=== PATIENT | male | born 1980 | race Caucasian/White ===

== ENCOUNTER 2025-07-22 08:07 | Outpatient (AMB) | payer OTHER, SELFPAY ==
--- NOTE | 2025-07-22 08:06 | A.OFFVIS_ITS ---
Vital Signs 07/22/25 08:18 Height 5 ft 11 in Weight 220 lb BMI 30.7 BP 180/140 H Blood Pressure Location Lt brachial Position Sitting Respiration 16 Pulse 110 H Pulse Source Pulse Oximeter Pulse Oximetry (%) 98 Oxygen Delivery Method Room Air Comment Provider is aware of elevated B/P and HR Intake Visit Reasons: alcohol related sz Allergies No Known Allergies Allergy (Verified 07/22/25 08:19) Medication List - Last Reconciled 07/22/25 by Xin Paulson CNP folic acid 1 mg PO DAILY lisinopril 5 mg PO DAILY multivitamin with folic acid 400 mcg (Daily-Nikky (with folic acid)) 1 tab PO DAILY ondansetron 4 mg PO Q8H PRN pantoprazole 40 mg PO QAM tadalafil 20 mg PO DAILY PRN topiramate 25 mg PO Q12H HPI Comments Details: Jeromy is a 45-year-old male patient with a past medical history of hypertension, anxiety, and alcohol use disorder (and alcohol-related seizures) presenting for an evaluation for his seizures. He was seen in the emergency room on 07/10/2025. According to EMS, he was found on his front lawn. Neighbors has been concern for seizure activity. The patient has been fired from his job that morning. The family also had some concerns for medication overdose. Workup in the emergency room included an EKG and a CT of the head/brain and cervical spine without contrast. The CTs showed no acute abnormalities of the head or cervical spine. And on tells me today that he had his 1st drink at age 11. He started drinking regularly at age 13 with his father. He has a long history of drinking heavily for many years though approximately 3-4 years ago when he developed ascites, he stopped drinking for approximately 2 years. He believes that he stopped drinking cold turkey however he was admitted to the hospital for his ascites and can not recall if he was given anything to prevent withdrawal symptoms. Up until recently, he had not experienced any withdrawal seizures in the past throughout his life that he can recall. He has been sober for approximately 2 years but approximately 1 year ago he began drinking slowly again. More recently, he is back to drinking heavily as he has been before. Over the course of last few months, he has had approximately 5 seizure episodes. He notes that 2 of the seizure episodes occurred at work and the remainder of the seizure episodes occurred in a home setting. He can recall specifically the 1st seizure occurring after abstaining from alcohol for 3 days because he was having some relationship difficulties with his significant other. Subsequent seizures that have occurred at work have also been in the setting of sobriety however he can not recall specifically how long he has been without alcohol before those seizures. He also notes that this past Sunday he had his most recent seizure event but this was in the setting of being intoxicated. He does not have any prior seizure history or any known family of seizure history that he is aware of. He denies any significant head traumas, history of brain infection, or history of premature /traumatic . He does mentioned that his sleep has been extremely poor though drinking alcohol does help him to sleep. He was recently admitted to the hospital for pancreatitis but is not currently experiencing any symptoms related to the pancreatitis. He does admit to some added stress at home especially with just recently losing his job. He has been on naltrexone for some time though he is no longer taking naltrexone. He does speak with a therapist. He is currently living at home with his significant other though notes that their relationship is currently very ?miriam?. He does not believe that he has had any MRI of the brain or EEGs in the past. [facility] Medical History Depression Transaminitis Palpitations Obesity Hypertension HLD (hyperlipidemia) Fatty liver Alcohol abuse Review of Systems Const All systems reviewed & are unremarkable except as noted in HPI and below Physical Exam Vital Signs: Last Vital Signs Pulse 110 H 07/22/25 08:18 Resp 16 07/22/25 08:18 BP 180/140 H 07/22/25 08:18 Pulse Ox 98 07/22/25 08:18 Oxygen Delivery Method Room Air 07/22/25 08:18 BMI result Body Mass Index 30.7 Const General: cooperative and no acute distress Orientation/consciousness: patient oriented x3 Neuro General: patient oriented x3, gait normal, moves all extremities and CN's II-XI intact bilaterally Psych Appearance: grossly normal Mental Status: mental status grossly normal Speech and movement: Other speech and movement exam findings present (Psych) (Slow, quiet voice ) Affect: Sad affect present and Anxious affect present Attitude: cooperative Thought process: Normal thought process present Thought content: Normal thought content present Insight: Good insight present (Psych) Judgement: Good judgement present (Psych) Assessment & Plan Assessment & Plan (1) Seizure disorder: Code(s): G40.909 - Epilepsy, unspecified, not intractable, without status epilepticus Category: Medical Plan Jeromy is a 45-year-old male patient with a past medical history of hypertension, anxiety, and alcohol use disorder (and alcohol-related seizures) presenting for an evaluation for his seizures. Jeromy has had seizures both in the setting of alcohol abstinence as well as intoxication. While his seizures may be directly related to his alcohol use, I can not at this point rule out any other cause for seizure until we have MRI imaging and an EEG. Because his seizures have been in the setting of both withdrawal and intoxication, and Jeromy is currently still drinking regularly, I think it would be reasonable to start him on an antiepileptic for protection in the meantime. We did discuss that if his imaging and EEG are normal, if he is able to abstain from alcohol and remain sober, it is likely that we could trial him off of the antiepileptic. Because of his alcohol related liver disease. I did recommend a trial of gabapentin however he tells me that he has tried this in the past however could not tolerate the side effects/mood changes. I will recommend Keppra extended release 500 mg at bedtime. Primary care can monitor his liver function and I will monitor his levetiracetam levels. Of note, his blood pressure was elevated today however he did not take his morning dose of lisinopril. He denied any chest pain, dizziness, or blurry vision associated with a blood pressure increase. -Start Keppra extended release 500 mg at bedtime -MRI brain with and without contrast -EEG awake and asleep Orders: Orders EEG awake and asleep Today G40.909 - Epilepsy, unspecified, not intractable, without status epilepticus MR head/brain wo/w con Today G40.909 - Epilepsy, unspecified, not intractable, without status epilepticus Medications: New levetiracetam ER 500 mg PO BEDTIME 30 tabs 5RF 30 days Coding Level of Care Code New Pt Level 4 (14755) Diagnoses Seizure disorder G40.909
[2025-07-22 08:18] VITALS: BP 180/140; PULSE 110; RESP 16; O2SAT 98; BMI 30.7
== END 2025-07-22 08:52 | disposition home or self-care (01) ==
LOC: HO.HSM 08:07
PROVIDERS: Visit Provider Nurse Practitioner
DX: G40.909 Epilepsy, unspecified, not intractable, without status epilepticus (principal)
CPT/HCPCS: 99204

== ENCOUNTER → 2025-07-22 08:07 | Outpatient (BNVA) | payer OTHER, SELFPAY | PROVIDERS: Visit Provider Nurse Practitioner | DX: G40.909 Epilepsy, unspecified, not intractable, without status epilepticus (principal) | CPT/HCPCS: 99202 ==

== ENCOUNTER 2025-08-20 08:19 | Outpatient (REF) | payer OTHER, SELFPAY ==
--- NOTE | 2025-08-20 08:33 | EEG_ITS ---
Reason for Exam: G40.909 Epilepsy Roomed Performed:?402 History: Depression, transaminitis, palpitations, obesity, hypertension, HLD, alcohol abuse Medication: Keppra, folic acid, lisinopril, multivitamin with folic acid, ondansetron, pantoprazole, tadalafil, topiramate Technical description:? Photic stimulation: Yes Hyperventilation:?Yes Behavioral state: Cooperative State of Consciousness: Awake Skull defect: None Sedation: None Handedness: Left Duration of study:? 30min ? ? 20sec Description: This is a 16 channel EEG with an EKG lead. Patient is reported awake during the tracing. Background EEG rhythm is mixed theta beta with frequent muscle and lead artifacts limiting interpretation of this EEG. Photic stimulation produced good amount of driving. Hyperventilation was unremarkable. No definite asymmetry, paroxysmal tendency, sharp waves or spikes were noted. Cardiac lead did not reveal any significant abnormality. Impression: Somewhat limited EEG because of frequent artifacts. No obvious epileptic tendency noted. MTDD
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
--- OUTSIDE RECORDS SUMMARY | 2025-08-20 08:41 | XMS_ITS | Clinical Summary ---
Author Organization [facility] Address [address] [place] [address] Phone Care Team Providers Care Supervising Deputy Name Role Phone Alba Marie MD Primary Care Provider [phone] Allergies No known active allergies Medications No known medications Resolved Problems Problem Noted Date Diagnosed Date Resolved Date Anxiety 07/27/2023 07/27/2023 11/05/2023 Liver enzymes level above reference range 07/27/2023 11/05/2023 Fatty liver 07/27/2023 07/27/2023 11/05/2023 Rectal hemorrhage 07/27/2023 07/27/2023 11/05/2023 Well adult 07/27/2023 07/27/2023 11/05/2023 Chronic kidney disease, stage 2 (mild) 04/27/2023 11/05/2023 Essential (primary) hypertension 04/27/2023 11/05/2023 Chest pain 11/27/2022 07/27/2023 11/05/2023 Overview (07/27/2023): Last Assessment & Plan: The patient has a longstanding history of episodes of atypical chest discomfort. He has also been noticing exertional dyspnea. His symptoms have been present since the year 2019. The patient states that his symptoms have remained essentially unchanged. He has been seen in our office multiple times with each visit resulting in the recommendation for the patient to undergo a stress test and an echocardiogram. Nevertheless, the patient has not completed the test that have been recommended and scheduled for him. In fact, since 2020, the patient has at least 5 no-shows for follow-up visits or testing appointments in our office. From today's visit, it also seemed apparent that the patient has not been compliant with his medications for his high blood pressure and hyperlipidemia. He also was recently evaluated in the [facility] emergency room and he left the emergency room against medical advice before the medical evaluation could be completed. Of note, the patient has multiple risk factors for coronary artery disease including: Hyperlipidemia, obesity, and hypertension. I had an extensive conversation with the patient today regarding his medical follow-up noncompliance as well as his medication noncompliance. I explained to the patient that undiagnosed coronary artery disease could result in the development of a myocardial infarction or even sudden cardiac . At the time of his visit today, the patient was noted to be chest pain-free. However, given his continued episodes of intermittent chest discomfort, I recommended again for the patient to undergo a stress echocardiogram as well as a transthoracic echocardiogram. The patient stated that he will attempt to complete the test as recommended. Orders for a stress echocardiogram and a transthoracic echocardiogram were placed today. Hopefully, the patient completes the test as scheduled in order to properly evaluate his symptoms and rule out the presence of coronary artery disease or structural heart disease as the cause of his symptoms. In the meantime, the patient was instructed to continue his therapy with metoprolol, atorvastatin, and aspirin. We will also add amlodipine. The patient is being evaluated for possible coronary artery disease. During today's visit, we reviewed the warning signs that should prompt an urgent medical evaluation. Specifically, we discussed that the patient should go to the hospital if she develops any chest discomfort at rest or worsening chest discomfort with exertion. Palpitations 11/27/2022 07/27/2023 11/05/2023 Overview (07/27/2023): Last Assessment & Plan: The patient has been experiencing episodes of palpitations. We will order a Holter monitor to evaluate for any underlying arrhythmias as a cause of her symptoms. We will also order an echocardiogram to rule out any significant structural heart disease. History of procedure 11/27/2022 024 Overview (07/15/2024): T changes Replacing diagnoses that were inactivated after the 07/15/24 Regulatory Import Erectile dysfunction 10/19/2021 07/27/2023 024 Prediabetes 10/19/2021 07/27/2023 11/05/2023 Shortness of breath 2021 07/27/2023 11/05/19 24 Overview (07/27/2023): Last Assessment & Plan: The patient has been experiencing exertional shortness of breath for a long time. He has had multiple visits in our office in which stress testing and an echocardiogram have been recommended. Nevertheless, the patient has not completed the studies. On today's visit, I again recommended for the patient to undergo a stress test and echocardiogram. The patient agreed for me to order the studies. As such, will order a stress echocardiogram to rule out any underlying ischemia as a cause of his symptoms. We will also order an echocardiogram to rule out any underlying structural heart disease. Enzyme level - finding 06/22/2020 07/27/202311/05 Body mass index 30+ - obesity 07/20/2019 07/27/2023 11/05/2023 Hyperlipidemia 07/20/2019 07/27/2023 11/05/2023 Overview (07/27/2023): Last Assessment & Plan: The patient has a history of hyperlipidemia. He is currently on atorvastatin 10 mg orally daily. The patient states that he has been taking the atorvastatin for the past 2 weeks. A lipid panel was ordered by his primary care physician and the patient stated that he will complete the laboratory test soon. 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 02/18/2019 07/27/2023 11/05/2023 Alcohol abuse 02/18/2019 07/27/2023 11/05/2023 Immunizations Immunization Administration Dates Next Due Influenza, MDCK, PF, Quadrivalent 07/09/2023,02/2022 Influenza, Unspecified 10/19/2021 Moderna SARS-COV-2 05/05/2021 Td, Unspecified 05/26/2009 Tdap 02/18/2019 Family History Medical History Relation Comments Cancer Mother Relation Status Comments Mother Social History Tobacco Use Types Packs/Day Years Used Date Smoking Tobacco: Former Cigarettes Passive Smoke Exposure: Never Smokeless Tobacco: Never Tobacco Cessation:Counseling Given: No Alcohol Use Standard Drinks/Week Comments Not Currently 51 (1 standard drink = 0.6 oz pu re alcohol) Sex and Gender Information Value Date Recorded Sex Assigned at Not on file Legal Sex Male 10:18 AM EDT Gender Identity Not on file Sexual Orientation Not on file Last Filed Vital Signs Vital Sign Reading Time Taken Comments Blood Pressure 102/60 11/29/2023 4:17 PM EST Pulse 67 11/29/2023 4:17 PM EST Temperature - - Respiratory Rate - - Oxygen Saturation 99% 11/29/2023 4:17 PM EST Inhaled Oxygen Concentration - - Weight 92.5 kg (204 lb) 11/29/2023 4:17 PM EST Height - - Body Mass Index - - Plan of Treatment Health Maintenance Due Date Last Done Comments Hepatitis B Vaccine (1 of 3 - 19+ 3-dose series) 2000 Pneumococcal Vaccine: Peds ( 0 to 5 Years) and At-Risk Patients (6 to 49 Years) (1 of 2 - PCV) 2000 Influenza Vaccine (#1) 2025 3, 07/09/2023, 10/19/2021, Additional history exists Insurance [facility] Medicaid [facility] Medicaid Care Teams Supervising Deputy Relationship Specialty Start Date End Date Alba Marie MD PCP - General Internal Medicine 11/29/23
--- OUTSIDE RECORDS SUMMARY | 2025-08-20 08:41 | XMS_ITS | Clinical Summary ---
Author Organization [address] Address [address] [place] [phone] Phone Care Team Providers Care Security Management Specialist Name Role Phone Brigid Frank MD Primary Care Provider [phone] Allergies No known active allergies Medications multivitamin tablet Take 1 tablet by mouth 1 (one) time each day. 90 each 3 05/25/2025 6 Active thiamine (VITAMIN B-1) 500 mg tablet Take 1 tablet (500 mg total) by mouth 1 (one) time each day. 90 tablet 3 05/25/2025 6 Active pyridoxine (B-6) 250 mg tablet Take 2 tablets (500 mg total) by mouth 1 (one) time each day. 180 tablet 1 05/26/2025 Active folic acid (FOLVITE) 1 mg tablet Take 1 tablet (1 mg total) by mouth 1 (one) time each day. 90 each 3 06/24/2025 6 Active lisinopriL (PRINIVIL,ZESTR IL) 5 mg tablet Take 1 tablet (5 mg total) by mouth 1 (one) time each day. 90 each 1 06/24/2025 6 Active topiramate (TOPAMAX) 25 mg tablet Take 1 tablet (25 mg total) by mouth every 12 (twelve) hours. 60 each 07/04/2025 6 Active naltrexone (DEPADE) 50 mg tablet Take 1 tablet (50 mg total) by mouth 1 (one) time each day. 30 each 07/04/2025 Active pantoprazole (PROTONIX) 40 mg EC tablet Take 1 tablet (40 mg total) by mouth 1 (one) time each day before breakfast. Do not crush, chew, or split. 30 each 07/04/2025 Active Active Problems Problem Noted Date Diagnosed Date Alcohol-induced acute pancre atitis without infection or necrosis 07/02/2025 Adjustment reaction with anxiety and depression 10/02/2024 Elevated liver enzymes 10/02/2024 Fatty liver 10/02/2024 Rectal bleeding 10/02/2024 Chest pain 11/27/2022 Overview (10/02/2024): Last Assessment & Plan: The patient has a longstanding history of episodes of atypical chest discomfort. He has also been noticing exertional dyspnea. His symptoms have been present since the 2019. The patient states that his symptoms [...] He also was recently evaluated in the [facility] emergency room and he left the [...] worsening chest discomfort with exertion. Palpitations 11/27/2022 Overview (10/02/2024): Last Assessment & Plan: The patient has been experiencing episodes of palpitations. We will order a Holter monitor to evaluate for any underlying arrhythmias as a cause of her symptoms. We will also order an echocardiogram to rule out any significant structural heart disease. Erectile dysfunction 10/19/2021 Prediabetes 10/19/2021 Shortness of breath 2021 Overview (10/02/2024): Last Assessment & Plan: The patient has [...] rule out any underlying structural heart disease. Transaminitis 06/22/2020 Hypertension 06/14/2020 Overview (10/02/2024): Last Assessment & Plan: The patient has a history of hypertension. He is currently on metoprolol succinate 25 mg orally daily. The patient states that he has been taking this medication but only for the past 2 weeks. He is also supposed to be on amlodipine 10 mg/day and losartan 100 mg/day but the patient has not picked up this medication from the pharmacy in more than 1 year. His blood pressure today was noted to be elevated in our office. As such, I prescribed him amlodipine 5 mg orally daily. I had a conversation with the patient regarding the importance of medication compliance. I explained to the patient that uncontrolled/untreated high blood pressure could lead to coronary artery disease, myocardial infarction, CVA, and possibly . Hyperlipidemia 07/20/2019 Overview (10/02/2024): Last Assessment & Plan: The patient has a history of hyperlipidemia. He is currently on atorvastatin 10 mg orally daily. The patient states that he has been taking the atorvastatin for the past 2 weeks. A lipid panel was ordered by his primary care physician and the patient stated that he will complete the laboratory test soon. 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 Alcohol abuse 02/18/2019 Encounters Date Type Department Care Team Description 08/18/2025 Telephone [facility] - [facility] [address] [place] [phone] Brigid Frank MD 08/18/2025 Telephone [facility] - [facility] [address] [place] [phone] Brigid Frank MD 07/23/2025 [facility] [address] [place] [phone] Brigid Frank MD 07/02/2025 10:13 AM EDT - 07/04/2025 2:57 PM EDT Hospital Encounter [facility] [address] [place] [phone] Mikhail Doshi MD Mogul, Ashley, MD Flores, Carlos M, MD Surendran, Anupama, MD Nasser, Nada S, MD Alcohol-induced acute pancreatitis without infection or necrosis (Primary Dx); Transaminitis; Alcohol dependence with uncomplicated withdrawal (CMS/HCC V24, CMS/HCC V28) Discharge Disposition: Home or Self Care 07/02/2025 [facility] [address] [place] [phone] Brigid Frank MD 07/02/2025 Telephone Internal Medicine - [address] [phone] Brigid Frank MD 06/24/2025 8:45 AM EDT Office Visit Internal [address] [phone] Tamiko Cordova NP Primary hypertension (Primary Dx); Adjustment reaction with anxiety and depression; Seizure (CMS/HCC V24, CMS/HCC V28); Alcohol abuse; Mixed hyperlipidemia; Screening for thyroid disorder; Screening for diabetes mellitus 05/25/2025 2:00 PM EDT Office Visit [facility] Medicine [address] [phone] Tamiko Cordova NP Screening for metabolic disorder (Primary Dx); Primary hypertension; Adjustment reaction with anxiety and depression; Alcohol abuse; Elevated liver enzymes; Alcohol related seizure (CMS/HCC V24, CMS/HCC V28); Alcohol-induced acute pancreatitis, unspecified complication status; Chronic kidney disease, unspecified CKD stage; Ascites of liver; Erectile dysfunction, unspecified erectile dysfunction type; Alcoholic cirrhosis of liver with ascites (CMS/HCC V24, CMS/HCC V28) from Last 3 Months Immunizations Immunization Administration Dates Next Due Influenza Quadravalent, MDCK , 0.5ml, preservative free (Flucelvax) 6mo and older 07/09/2023,10/19/2021 Td Tetanus diptheria (Tdvax) 7yo and older 05/26 Tdap Tetanus diptheria acell ular pertussis (Boostrix; Adacel) 7yo and older 02/18/2019 Surgical History Surgery Date Site/Laterality Comments OTHER SURGICAL HISTORY PROCEDURE: AK RDCTJ TORSION TSTIS W/WO FIXJ CLAT TESTIS HERNIA REPAIR Medical History Medical History Date Comments Alcohol abuse DX:Alcohol abuse Elevated liver enzymes DX:Elevat ed liver enzymes Fatty liver DX:Fatty liver Anxiety DX:Anxiety Elevated cholesterol with hi gh triglycerides DX:Elevated cholesterol with high triglycerides Rectal bleeding DX:Rectal bleedi ng Hypertension DX:Hypertension Tachycardia DX:Tachycardia Family History Medical History Relation Name Comments Coronary artery disease Brother Depression Father Diabetes Father Hypertension Father Diabetes Maternal Grandfather Hypertension Maternal Grandfather Melanoma Maternal Grandmother Breast cancer Mother Depression Mother Depression Sister Relation Name Status Comments Brother Father Alive Maternal Grandfather Alive Maternal Grandmother Alive Mother Alive Sister Alive Social History Tobacco Use Types Packs/Day Years Used Date Smoking Tobacco: Former Cigarettes Q uit: 11/15/2019 Smokeless Tobacco: Never Tobacco Cessation:Counseling Given: Not Answered Alcohol Use Standard Drinks/Week Comments Yes 0 [...] on file Sexual Orientation Not on file Obstetrics History Last Filed Vital Signs Vital Sign Reading Time Taken Comments Blood Pressure 138/95 07/04/2025 11:36 AM EDT Pulse 87 07/04/2025 11:36 AM EDT Temperature 36.2 C (97.2 F) 07/04/2025 11:36 AM EDT Respiratory Rate 18 07/04/2025 11:36 AM EDT Oxygen Saturation 100% 07/04/2025 11:36 AM EDT Inhaled Oxygen Concentration - - Weight 94.6 kg (208 lb 9.6 oz) 07/02/2025 8:05 P M EDT Height 180.3 cm (5' 11 ) 07/02/2025 10:07 AM EDT Body Mass Index 29.09 07/02/2025 10:07 AM EDT Plan of Treatment Upcoming Encounters Date Type Department Care Team (Late st Contact Info) Description 09/23/2025 4:00 PM EST Office Visit Internal Medicine - [address] [phone] Tamiko Cordova, PIERCE [address] [place] [address] Health Maintenance Due Date Last Done Comments Hepatitis A Vaccines (1 of 2 - Risk 2-dose series) 2000 Hepatitis B Vaccines (1 of 3 - 19+ 3-dose series) 2000 Pneumococcal Vaccine: Pediatrics (0 to 5 Years) and At-Risk Patients (6 to 49 Years) (1 of 2 - PCV) 2000 HPV Vaccines (1 - 3-dose SCDM series) 2008 HIV Screening 09/13/2022 Social Influencers of Health Screening 09/13/2022 Depression Screening 10/15/2024 COVID-19 Vaccine (2 - 2024- season) 2025 05/05/2021 Influenza Vaccine (#1) 2025 07/09/2023, 2021 Hypertension/CHF/CAD Annual BMP Blood Test 07/04/2026 07/04/2025, 07/03/2025, 07/02/2025, Additional history exists DTaP,Tdap,and Td Vaccines (3 - Td or Tdap) 02/18/2029 02/18/2019, 05/26/2009 Cholesterol Screening (Lipid Panel) 02/25/2029 02/26/2024, 02/26/2024 RSV Immunization Adult Patients (1 - 1-dose 75+ series) 2056 Hepatitis C Screening Completed 07/23/2020 HIB Vaccines Aged Out No longer eligi ble based on patient's age to complete this topic IPV Vaccines Aged Out No longer eligi ble based on patient's age to complete this topic MMR Vaccines Aged Out No longer eligi ble based on patient's age to complete this topic Meningococcal ACWY Vaccine Aged Out N o longer eligible based on patient's age to complete this topic Meningococcal B Vaccine Aged Out No l onger eligible based on patient's age to complete this topic RSV Immunization Patients Under 20 months Aged Out No longer eligible based on patient's age to complete this topic Varicella Vaccines Aged Out No longer eligible based on patient's age to complete this topic Procedures Procedure Name Priority Date/Time Associated Diagnosis Comments IRON AND TIBC Add-On 07/04/2025 5:30 AM EDT CBC WITH AUTO DIFFERENTIAL Routine 07/04/2025 5:30 AM EDT LIPASE Routine 07/04/2025 5:30 AM EDT PHOSPHORUS Routine 07/04/2025 5:30 AM EDT MAGNESIUM Routine 07/04/2025 5:30 AM EDT HEPATIC FUNCTION PANEL Routine 07/04/2025 5:30 AM EDT CBC AND DIFFERENTIAL Routine 07/04/2025 5:30 AM EDT BASIC METABOLIC PANEL Routine 07/04/2025 5:30 AM EDT VITAMIN B1 Routine 07/03/2025 12:23 PM EDT FOLATE Add-On 07/03/2025 5:38 AM EDT PHOSPHORUS Add-On 07/03/2025 5:38 AM EDT CBC WITH AUTO DIFFERENTIAL Routine 07/03/2025 5:38 AM EDT LACTATE Routine 07/03/2025 5:38 AM EDT HEPATIC FUNCTION PANEL Routine 07/03/2025 5:38 AM EDT LIPASE Routine 07/03/2025 5:38 AM EDT CBC AND DIFFERENTIAL Routine 07/03/2025 5:38 AM EDT MAGNESIUM Routine 07/03/2025 5:38 AM EDT BASIC METABOLIC PANEL Routine 07/03/2025 5:38 AM EDT LACTATE Routine 07/02/2025 10:17 PM EDT ECG 12-LEAD STAT 07/02/2025 5:[address] ABDOMEN PELVIS W CONTRAST STAT 07/02/2025 4:[address] HEAD WO CONTRAST STAT 07/02/2025 4 :15 PM EDT PROTHROMBIN TIME WITH INR STAT 07/02/2025 3:54 PM EDT LACTATE, WITH REFLEX Timed 07/02/2025 3:54 PM EDT US ABDOMEN LIMITED STAT 07/02/2025 3: 24 PM EDT LACTATE, WITH REFLEX STAT 07/02/2025 1:11 PM EDT DRUG ABUSE SCREEN 8A PANEL, URINE STAT 07/02/2025 1:11 PM EDT TRIGLYCERIDES Add-On 07/02/2025 10:58 AM EDT HEPATIC FUNCTION PANEL STAT Add-on 07/02/2025 10:58 AM EDT LIPASE STAT Add-on 07/02/2025 10:58 AM EDT ETHANOL STAT Add-on 07/02/2025 10:58 AM EDT CBC WITH AUTO DIFFERENTIAL STAT 07/02/2025 10:58 AM EDT BASIC METABOLIC PANEL STAT 07/02/2025 10:58 AM EDT CBC AND DIFFERENTIAL STAT 07/02/2025 10:58 AM EDT LIPID PANEL Routine 02/26/2024 HEPATITIS C SCREENING Routine 07/23/2020 from Last 3 Months or Most Recently Relevant to Health Maintenance Results * (ABNORMAL) CBC auto differential (07/04/2025 5:30 AM EDT) Only the most recent of3 resultswithin the time period is included. [facility] Signature WBC 5.3 4.8 - 10.8 K/[facility] LAB HEMETOLOGY METHOD 07/04/2025 7:53 AM EDT [facility] RBC 3.50(L) 4.50 - 5.50 M/mcL LAB HEMETOLOGY METHOD 07/04/2025 7:53 AM [facility] Hemoglobin 11.4(L) 13.5 - 17.5 g/dL LAB HEMETOLOGY METHOD 07/04/2025 7:53 AM [facility] Hematocrit 33.3(L) 42.0 - 54.0 % LAB HEMETOLOGY METHOD 07/04/2025 7:53 AM [facility] MCV 96.0 79.0 - 98.0 FL LAB HEMETOLOGY METHOD 07/04/2025 7:53 AM [facility] MCH 32.9(H) 27.0 - 32.0 pcg LAB HEMETOLOGY METHOD 07/04/2025 7:53 AM [facility] MCHC 34.2 32.0 - 37.0 g/dL LAB HEMETOLOGY METHOD 07/04/2025 7:53 AM [facility] RDW 15.5(H) 11.0 - 15.0 % LAB HEMETOLOGY METHOD 07/04/2025 7:53 AM [facility] Platelets 67(L) 130 - 400 K/mcL LAB HEMETOLOGY METHOD 07/04/2025 7:53 AM [facility] LAB Comment:reviewed by slide MPV 10.1 7.0 - 11.0 FL LAB HEMETOLOGY METHOD 07/04/2025 7:53 AM [facility] NRBC 0.0 <1.0 % LAB HEMETOLOGY METHOD 07/04/2025 7:53 AM [facility] NRBC Absolute 0.00 <0.10 K/mcL LAB HEMETOLOGY METHOD 07/04/2025 7:53 AM [facility] Neutrophils Relative 74.4 % LAB HEMETOLOGY METHOD 07/04/2025 7:53 AM [facility] Lymphocytes Relative 17.0 % LAB HEMETOLOGY METHOD 07/04/2025 7:53 AM [facility] Monocytes Relative 5.5 % LAB HEMETOLOGY METHOD 07/04/2025 7:53 AM [facility] Eosinophils Relative 2.3 % LAB HEMETOLOGY METHOD 07/04/2025 7:53 AM [facility] Basophils Relative 0.6 % LAB HEMETOLOGY METHOD 07/04/2025 7:53 AM [facility] Immature Granulocytes Relative 0.2 % LAB HEMETOLOGY METHOD 07/04/2025 7:53 AM [facility] Neutrophils Absolute 3.94 1.50 - 7.00 K/mcL LAB HEMETOLOGY METHOD 07/04/2025 7:53 AM [facility] Lymphocytes Absolute 0.90(L) 1.00 - 5.00 K/mcL LAB HEMETOLOGY METHOD 07/04/2025 7:53 AM [facility] Monocytes Absolute 0.29 0.20 - 1.00 K/mcL LAB HEMETOLOGY METHOD 07/04/2025 7:53 AM [facility] Eosinophils Absolute 0.12 0.00 - 0.50 K/mcL LAB HEMETOLOGY METHOD 07/04/2025 7:53 AM [facility] Basophils Absolute 0.03 0.00 - 0.20 K/mcL LAB HEMETOLOGY METHOD 07/04/2025 7:53 AM [facility] Immature Granulocytes Absolute 0.01 0.00 - 0.03 K/mcL LAB HEMETOLOGY METHOD 07/04/2025 7:53 AM [facility] Blood Venous blood specimen / Unknown Venipuncture / Unknown 07/04/2025 5:30 AM EDT 07/04/2025 6:42 AM EDT Tracie Fishman MD LAB BLOOD ORDERABLES Final Result Performing Organization Address City/[facility]/ZIP Co de Phone Number [facility] [address] [place] [address], [place] [phone] * Iron and TIBC (07/04/2025 5:30 AM EDT) Iron 83 50 - 160 mcg/dL LAB CHEMISTRY METHOD 07/04/2025 12:20 PM EDT [facility] TIBC 320 250 - 450 mcg/dL LAB CHEMISTRY METHOD 07/04/2025 12:20 PM EDT [facility] Iron Saturation 26 20 - 50 % LAB CHEMISTRY METHOD 07/04/2025 12:20 PM EDT [facility] Blood Venous blood specimen / Unknown Venipuncture / Unknown 07/04/2025 5:30 AM EDT 07/04/2025 6:43 AM EDT Slava Mancilla MD LAB BLOOD ORDERABLES Final Resu lt Performing Organization Address [facility] Co de Phone Number [facility] [address] [place] [address], [place] [phone] * Phosphorus (07/04/2025 5:30 AM EDT) Only the most recent of2 resultswithin the time period is included. Phosphorus 3.1 2.5 - 4.5 mg/dL LAB CHEMISTRY METHOD 07/04/2025 7:21 AM EDT [facility] Blood Venous blood specimen / Unknown Venipuncture / Unknown 07/04/2025 5:30 AM EDT 07/04/2025 6:43 AM EDT Tracie Fishman MD LAB BLOOD ORDERABLES Final Result [facility] [address] [place] [address], [place] [phone] * Magnesium (07/04/2025 5:30 AM EDT) Only the most recent of2 resultswithin the time period is included. [facility] Magnesium 1.9 1.9 - 2.6 mg/dL LAB CHEMISTRY METHOD 07/04/2025 7:32 AM EDT [facility] Comment:Results verified by repeat testing Blood Venous blood specimen / Unknown Venipuncture / Unknown 07/04/2025 5:30 AM EDT 07/04/2025 6:43 AM EDT us Tracie Fishman MD LAB BLOOD ORDERABLES Final Result Performing Organization Address [facility]/ZIP Co de Phone Number [facility] [address] [place] [address], * (ABNORMAL) Lipase (07/04/2025 5:30 AM EDT) Only the most recent of3 resultswithin the time period is included. [facility] Lipase 147(H) 13 - 75 unit/L LAB CHEMISTRY METHOD 07/04/2025 7:21 AM EDT [facility] Blood Venous blood specimen / Unknown Venipuncture / Unknown 07/04/2025 5:30 AM EDT 07/04/2025 6:43 AM EDT us Tracie Fishman MD LAB BLOOD ORDERABLES Final Result Performing Organization Address City/[facility]/ZIP Co de Phone Number [facility] [address] [place] [address], [place] [phone] * (ABNORMAL) Hepatic function panel (07/04/2025 5:30 AM EDT) Only the most recent of3 resultswithin the time period is included. [facility] Total Protein 5.9(L) 6.0 - 8.0 g/dL LAB CHEMISTRY METHOD 07/04/2025 7:22 AM [facility] Albumin 2.9(L) 3.2 - 5.0 g/dL LAB CHEMISTRY METHOD 07/04/2025 7:22 AM [facility] Total Bilirubin 3.2(H) 0.0 - 1.4 mg/dL LAB CHEMISTRY METHOD 07/04/2025 7:22 AM [facility] Bilirubin, Direct 2.1(H) 0.0 - 0.3 mg/dL LAB CHEMISTRY METHOD 07/04/2025 7:22 AM [facility] Bilirubin, Indirect 1.1 0.0 - 1.1 mg/dL LAB CHEMISTRY METHOD 07/04/2025 7:22 AM [facility] ALT (SGPT) 69(H) 10 - 60 unit/L LAB CHEMISTRY METHOD 07/04/2025 7:22 AM [facility] AST (SGOT) 126(H) 10 - 42 unit/L LAB CHEMISTRY METHOD 07/04/2025 7:22 AM [facility] Alkaline Phosphatase 193(H) 42 - 121 unit/L LAB CHEMISTRY METHOD 07/04/2025 7:22 AM [facility] Blood Venous blood specimen / Unknown Venipuncture / Unknown 07/04/2025 5:30 AM EDT 07/04/2025 6:43 AM EDT Tracie Fishman MD LAB BLOOD ORDERABLES Final Result [facility] [address] [place] [address], * (ABNORMAL) Basic metabolic panel (07/04/2025 5:30 AM EDT) Only the most recent of3 resultswithin the time period is included. Sodium 135 133 - 145 mmol/L LAB CHEMISTRY METHOD 07/04/2025 7:21 AM [facility] Potassium 3.3(L) 3.5 - 5.5 mmol/L LAB CHEMISTRY METHOD 07/04/2025 7:21 AM [facility] Chloride 98 96 - 110 mmol/L LAB CHEMISTRY METHOD 07/04/2025 7:21 AM [facility] CO2 27 21 - 32 mmol/L LAB CHEMISTRY METHOD 07/04/2025 7:21 AM [facility] Anion Gap 10 3 - 11 LAB CHEMISTRY METHOD 07/04/2025 7:21 AM [facility] Glucose 86 70 - 100 mg/dL LAB CHEMISTRY METHOD 07/04/2025 7:21 AM [facility] BUN 10 5 - 25 mg/dL LAB CHEMISTRY METHOD 07/04/2025 7:21 AM [facility] Creatinine 1.19 0.70 - 1.30 mg/dL LAB CHEMISTRY METHOD 07/04/2025 7:21 AM [facility] eGFR 77 >=60 mL/min/1. 73m2 LAB CHEMISTRY METHOD 07/04/2025 7:21 AM [facility] Comment:Calculation based on the Chronic Kidney Disease Epidemiology Collaboration (CKD-EPI) equation refit without adjustment for race. BUN/Creatinine Ratio 8.4 LAB CHEMISTRY METHOD 07/04/2025 7:21 AM [facility] Calcium 7.9(L) 8.5 - 10.5 mg/dL LAB CHEMISTRY METHOD 07/04/2025 7:21 AM [facility] Blood Venous blood specimen / Unknown Venipuncture / Unknown 07/04/2025 5:30 AM EDT 07/04/2025 6:43 AM EDT us Tracie Fishman MD LAB BLOOD ORDERABLES Final Result [facility] [address] [place] [address], [place] [phone] * Vitamin B1 (07/03/2025 12:23 PM EDT) [facility] Vitamin B1 Whole Blood 111 38 - 122 ug/L 07/08/2025 12:20 PM EDT [facility] Comment: This test was developed and the performance characteristics determined by [facility]. It has not been cleared or approved by the FDA. The laboratory is regulated under CLIA as qualified to perform high-complexity testing. This test is used for patient testing purposes. It should not be regarded as investigational or for research. Test performed at [facility], [address] , [place] [address] Paulette Oshea MD, PhD - Store Product Demonstrator Blood Venous blood specimen / Unknown Venipuncture / Unknown 07/03/2025 12:23 PM EDT 07/03/2025 12:34 PM EDT Tracie Fishman MD LAB BLOOD ORDERABLES Final Result [facility] [address] [place] [address] * Lactate (07/03/2025 5:38 AM EDT) Only the most recent of2 resultswithin the time period is included. [facility] Lactate 0.8 0.4 - 2.0 mmol/L LAB CHEMISTRY METHOD 07/03/2025 8:09 AM EDT [facility] Blood Venous blood specimen / Unknown Venipuncture / Unknown 07/03/2025 5:38 AM EDT 07/03/2025 6:28 AM EDT Dolly CUEVAS LAB BLOOD ORDERABLES Final R esult [facility] [address] [place] [address], [place] [phone] * Folate (07/03/2025 5:38 AM EDT) [facility] Folate 13.5 2.8 - 17.0 ng/ml LAB CHEMISTRY METHOD 07/03/2025 1:04 PM EDT [facility] Blood Venous blood specimen / Unknown Venipuncture / Unknown 07/03/2025 5:38 AM EDT 07/03/2025 6:36 AM EDT Tracie Fishman MD LAB BLOOD ORDERABLES Final Result Performing Organization Address City/[facility]/ZIP Co de Phone Number [facility] [address] [place] [address], [place] [phone] * ECG 12 lead (07/02/2025 5:30 PM EDT) [facility] Ventricular Rate ECG 104 BPM GEMUSE Atrial Rate 104 BPM GEMUSE P-R Interval 122 ms GEMUSE QRS Duration 84 ms GEMUSE Q-T Interval 358 ms GEMUSE QTc 470 ms GEMUSE P Wave [place] 41 degrees GEMUSE R [place] 60 degrees GEMUSE T [place] 47 degrees GEMUSE ECG Interpretation Sinus tachycardia with occasional Premature ventricular complexes Otherwise normal ECG When compared with ECG of 13-JAN-2017 18:41, Premature ventricular complexes are now Present T wave inversion no longer evident in Inferior leads T wave inversion no longer evident in Anterolateral leads Confirmed by MD Horace, [facility] eddestiney ([id number]) on 07/03/2025 9:46:58 PM GEMUSE 07/02/2025 5:30 PM EDT 07/03/2025 9:46 PM EDT Shanita Swain MD ECG ORDERABLES Final Result Performing Organization Address City/[facility]/ZIP Co de Phone Number [facility] * CT Abdomen Pelvis w Contrast (07/02/2025 4:23 PM EDT) Anatomical Region Laterality Modality Body Computed Tomogra phy 07/02/2025 4:44 PM EDT Impressions 07/02/2025 4:48 PM EDT Uncomplicated acute pancreatitis. -------- FINAL REPORT -------- Dictated By: Orion Leon Dictated Date: 07/02/2025 16:44 ET Assigned Physician: Orion Leon Reviewed and Electronically Signed By: Orion Leon Signed Date: 07/02/2025 16:48 ET Workstation ID: [id number] Transcribed By: Self Edit Transcribed Date: 07/02/2025 16:44 ET Narrative 07/02/2025 4:48 PM EDT PROCEDURE: CT ABDOMEN/PELVIS WITH CONTRAST INDICATION: pancreatitis, tachycardia, r/o necrotizing panc TECHNIQUE: CT of the abdomen and pelvis following the intravenous administration of 90cc Isovue 370. Multiplanar reformats. The examination was performed utilizing dose reduction techniques. Total DLP 1074 COMPARISON: No priors available. FINDINGS: LOWER THORAX: Lung bases are clear. HEPATOBILIARY: Diffuse low-attenuation of the liver. No cholelithiasis or biliary duct dilatation. SPLEEN: No focal lesion. PANCREAS: There is inflammatory change distal pancreatitis compatible with acute pancreatitis. There is some persistent edema at the distal body and at the tail but no necrosis definitively evident currently. Consider follow-up multiphasic imaging as an outpatient once acute symptoms resolve to exclude neoplasm. ADRENALS: No nodules. KIDNEYS/URETERS: No hydronephrosis, stones, or solid mass. PELVIC ORGANS/BLADDER: Unremarkable. PERITONEUM / RETROPERITONEUM: No ascites or free air. No retroperitoneal lymphadenopathy. VESSELS: Scattered atherosclerotic calcifications throughout the aorta and its major branches. No aneurysm. GI TRACT: No bowel distention or wall thickening. Normal appendix. BONES AND SOFT TISSUES: Scattered degenerative changes seen throughout the bones. Soft tissues are unremarkable. Procedure Note Orion Leon MD - 07/02/2025 PROCEDURE: CT ABDOMEN/PELVIS WITH CONTRAST INDICATION: pancreatitis, tachycardia, r/o necrotizing panc TECHNIQUE: CT of the abdomen and pelvis following the intravenousadministration of 90cc Isovue 370. Multiplanar reformats. The examinationwas performed utilizing dose reduction techniques. Total DLP 1074 COMPARISON: No priors available. FINDINGS: LOWER THORAX: Lung bases are clear. HEPATOBILIARY: Diffuse low-attenuation of the liver. No cholelithiasis orbiliary duct dilatation. SPLEEN: No focal lesion. PANCREAS: There is inflammatory change distal pancreatitis compatible withacute pancreatitis. There is some persistent edema at the distal body andat the tail but no necrosis definitively evident currently. Considerfollow-up multiphasic imaging as an outpatient once acute symptoms resolveto exclude neoplasm. ADRENALS: No nodules. KIDNEYS/URETERS: No hydronephrosis, stones, or solid mass. PELVIC ORGANS/BLADDER: Unremarkable. PERITONEUM / RETROPERITONEUM: No ascites or free air. No retroperitoneallymphadenopathy. VESSELS: Scattered atherosclerotic calcifications throughout the aorta andits major branches. No aneurysm. GI TRACT: No bowel distention or wall thickening. Normal appendix. BONES AND SOFT TISSUES: Scattered degenerative changes seen throughout thebones. Soft tissues are unremarkable. IMPRESSION: Uncomplicated acute pancreatitis. -------- FINAL REPORT -------- Dictated By: Orion Leon Dictated Date: 07/02/2025 16:44 ET Assigned Physician: Orion Leon Reviewed and Electronically Signed By: Orion Leon Signed Date: 07/02/2025 16:48 ET Workstation ID: [id number] Transcribed By: Self Edit Transcribed Date: 07/02/2025 16:44 ET Shanita Swain MD IM CT PROCEDURES Final Result * CT Head wo Contrast (07/02/2025 4:15 PM EDT) Anatomical Region Laterality Modality Head and Neck Computed Tomogra phy 07/02/2025 4:43 PM EDT Impressions 07/02/2025 4:44 PM EDT NO ACUTE INTRACRANIAL ABNORMALITY. -------- FINAL REPORT -------- Dictated By: Orion Leon Dictated Date: 07/02/2025 16:43 ET Assigned Physician: Oiron Leon Reviewed and Electronically Signed By: Orion Leon Signed Date: 07/02/2025 16:44 ET Workstation ID: [id number] Transcribed By: Self Edit Transcribed Date: 07/02/2025 16:43 ET Narrative 07/02/2025 4:44 PM EDT PROCEDURE: HEAD CT INDICATION: Mental status change, unknown cause TECHNIQUE: CT of the head without intravenous contrast. Multiplanar reformats. The examination was performed utilizing dose reduction techniques. Total DLP 901 COMPARISON: No priors available. FINDINGS: No acute territorial infarct, mass effect, or intracranial hemorrhage. No significant white matter disease No hydrocephalus. Visualized paranasal sinuses are clear. Mastoid air cells are clear. No calvarial fracture. Procedure Note Orion Leon MD - 07/02/2025 PROCEDURE: HEAD CT INDICATION: Mental status change, unknown cause TECHNIQUE: CT of the head without intravenous contrast. Multiplanarreformats. The examination was performed utilizing dose reductiontechniques. Total DLP 901 COMPARISON: No priors available. FINDINGS: No acute territorial infarct, mass effect, or intracranial hemorrhage. No significant white matter disease No hydrocephalus. Visualized paranasal sinuses are clear. Mastoid air cells are clear. No calvarial fracture. IMPRESSION: NO ACUTE INTRACRANIAL ABNORMALITY. -------- FINAL REPORT -------- Dictated By: Orion Leon Dictated Date: 07/02/2025 16:43 ET Assigned Physician: Orion Leon Reviewed and Electronically Signed By: Orion Leon Signed Date: 07/02/2025 16:44 ET Workstation ID: [id number] Transcribed By: Self Edit Transcribed Date: 07/02/2025 16:43 ET Shanita Swain MD IMG CT PROCEDURES Final Result * (ABNORMAL) Lactate, with reflex (07/02/2025 3:54 PM EDT) Only the most recent of2 resultswithin the time period is included. LACTIC ACID 2.4(H) 0.4 - 2.0 mmol/L LAB CHEMISTRY METHOD 07/02/2025 4:36 PM EDT [facility] Blood Venous blood specimen / Unknown Venipuncture / Unknown 07/02/2025 3:54 PM EDT 07/02/2025 4:04 PM EDT Mikhail Doshi MD LAB BLOOD ORDERABLES Final Resul t [facility] [address] [place] [address], [place] [phone] * Prothrombin time with INR (07/02/2025 3:54 PM EDT) Protime 13.8 10.6 - 13.9 sec LAB COAGULATION METHOD 07/02/2025 4:18 PM EDT [facility] INR 1.1 LAB COAGULATION METHOD 07/02/2025 4:18 PM EDT [facility] Blood Venous blood specimen / Unknown Venipuncture / Unknown 07/02/2025 3:54 PM EDT 07/02/2025 4:04 PM EDT us Shanita Swain MD LAB BLOOD ORDERABLES Final Resul t [facility] [address] [place] [address], [place] [phone] * US Abdomen Limited (07/02/2025 3:24 PM EDT) Anatomical Region Laterality Modality Body Ultrasound 07/02/2025 3:51 PM EDT Impressions 07/02/2025 4:20 PM EDT No cholelithiasis or sonographic evidence of acute cholecystitis. No intrahepatic biliary dilatation. -------- FINAL REPORT -------- Dictated By: Orion Leon Dictated Date: 07/02/2025 15:51 ET Assigned Physician: Orion Leon Reviewed and Electronically Signed By: Orion Leon Signed Date: 07/02/2025 16:20 ET Workstation ID: [id number] Transcribed By: Self Edit Transcribed Date: 07/02/2025 16:00 ET Narrative 07/02/2025 4:20 PM EDT Exam: US ABDOMEN LIMITED Date of Study: 07/02/2025 2:40 PM CLINICAL INFORMATION: Pancreatitis, possible CBD stone TECHNIQUE: Real-time ultrasound scanning of the region of interest performed by the selector packer. Cheese Specialist static images and video clips are submitted for review. FINDINGS: IVC is unremarkable. Visualized pancreas is unremarkable. Liver appears slightly echogenic suggestive of fatty infiltration. Normal direction of flow within the portal veins. No gallstones. No wall thickening or distention. Limited evaluation of the common bile duct measuring approximately 4 to 5 mm. No intrahepatic biliary dilatation. Negative sonographic Dimas's sign. The right kidney measures 11.1 cm without evidence for mass or hydronephrosis. Procedure Note Orion Leon MD - 07/02/2025 Exam: US ABDOMEN LIMITED Date of Study: 07/02/2025 2:40 PM CLINICAL INFORMATION: Pancreatitis, possible CBD stone TECHNIQUE: Real-time ultrasound scanning of the region of interestperformed by the selector packer. Cheese Specialist static images and video clipsare submitted for review. FINDINGS: IVC is unremarkable. Visualized pancreas is unremarkable. Liver appearsslightly echogenic suggestive of fatty infiltration. Normal direction offlow within the portal veins. No gallstones. No wall thickening ordistention. Limited evaluation of the common bile duct measuringapproximately 4 to 5 mm. No intrahepatic biliary dilatation. Negativesonographic Dimas's sign. The right kidney measures 11.1 cm withoutevidence for mass or hydronephrosis. IMPRESSION: No cholelithiasis or sonographic evidence of acute cholecystitis. Nointrahepatic biliary dilatation. -------- FINAL REPORT -------- Dictated By: Orion Leon Dictated Date: 07/02/2025 15:51 ET Assigned Physician: Orion Leon Reviewed and Electronically Signed By: Orion Leon Signed Date: 07/02/2025 16:20 ET Workstation ID: [id number] Transcribed By: Self Edit Transcribed Date: 07/02/2025 16:00 ET Shanita Swain MD [facility] US PROCEDURES Final Result * Drug abuse screen 8a panel, urine (07/02/2025 1:11 PM EDT) Amphetamine Screen, Ur Negative Negative LAB CHEMISTRY METHOD 07/02/2025 1:42 PM EDT [facility] Comment:Certain OTC medicati ons containing ephedrine, phenylephrine, pseudoephedrine and phenylpropanolamine can cause false positive results. Barbiturate Screen, Ur Negative Negative LAB CHEMISTRY METHOD 07/02/2025 1:42 PM EDT [facility] Benzodiazepine Screen, Ur Negative Negative LAB CHEMISTRY METHOD 07/02/2025 1:42 PM EDT [facility] Cocaine Screen, Ur Negative Negative LAB CHEMISTRY METHOD 07/02/2025 1:42 PM EDT [facility] Opiate Screen, Ur Negative Negative LAB CHEMISTRY METHOD 07/02/2025 1:42 PM EDT [facility] Cannabinoid (THC) Screen, Ur Negative Negative LAB CHEMISTRY METHOD 07/02/2025 1:42 PM EDT [facility] Comment:Specimens from patie nts taking pantoprazole sodium (Protonix) have been shown to produce false positive results. Oxycodone Screen, Ur Negative Negative LAB CHEMISTRY METHOD 07/02/2025 1:42 PM EDT [facility] Fentanyl, Ur Negative Negative LAB CHEMISTRY METHOD 07/02/2025 1:42 PM EDT [facility] Urine Urine specimen obtained by clean catch procedure / Unknown Non-blood Collection / Unknown 07/02/2025 1:11 PM EDT 07/02/2025 1:15 PM EDT Narrative [facility] - 07/02/2025 1:42 PM EDT Assay cutoffs: Amphetamines 1000 ng/mL Barbiturates 200 ng/mL Benzodiazepines 200 ng/mL Cocaine 300 ng/mL Fentanyl 1 ng/mL Opiates 300 ng/mL Oxycodone 100 ng/mL THC 50 ng/mL Semi-quantitative assay for screening purposes only. Unconfirmed screening result should not be used for non-medical purposes. *ALTERNATE METHOD CONFIRMATION DONE UPON REQUEST ONLY* us Mikhail Doshi MD LAB URINE ORDERABLES Final Resul t [facility] [address] [place] [address], * (ABNORMAL) Triglycerides (07/02/2025 10:58 AM EDT) Triglycerides 316(H) 0 - 150 mg/dL LAB CHEMISTRY METHOD 07/02/2025 10:18 PM EDT [facility] Blood Venous blood specimen / Unknown Venipuncture / Unknown 07/02/2025 10:58 AM EDT 07/02/2025 11:20 AM EDT Dolly CUEVAS LAB BLOOD ORDERABLES Final R esult Performing Organization Address City/[facility]/ZIP Co de Phone Number [facility] [address] [place] [address], [place] [phone] * (ABNORMAL) Ethanol (07/02/2025 10:58 AM EDT) Pathologist [facility] Ethanol Level 194(H) 0 - 10 mg/dL LAB CHEMISTRY METHOD 07/02/2025 1:42 PM EDT [facility] Blood Venous blood specimen / Unknown Venipuncture / Unknown 07/02/2025 10:58 AM EDT 07/02/2025 11:20 AM EDT Mikhail Doshi MD LAB BLOOD ORDERABLES Final Resul t Performing Organization Address [facility]/ZIP Co de Phone Number [facility] [address] [place] [address], [place] [phone] * (ABNORMAL) Lipid panel (02/26/2024) Pathologist [facility] LDL/HDL Ratio 4 0 - 4 Triglycerides 172(A) 0 - 150 mg/dL Cholesterol 202(A) 0 - 200 mg/dL HDL 57 >=40 mg/dL LDL Cholesterol 111(A) 0 - 100 mg/dL Blood Venous blood specimen / Unknown Selwyn Shelton MD LAB BLOOD ORDERABLES Olga l Result * Hepatitis C Screening (07/23/2020) Pathologist [facility] Hepatitis C Screening Abstracted Selwyn Shelton MD HEALTH MAINTENANCE Final Result from Last 3 Months or Most Recently Relevant to Health Maintenance Insurance [facility] [employer] Advance Directives * Full Code - Default (Latest Code Status on File) Date Activated Date Inactivated Comments 07/02/2025 6:32 PM 07/04/2025 5:03 PM This is orde r is used when code status has not been discussed with the patient, or code status is otherwise unknown/unconfirmed To update the patient's code status, place a code status order. Do not modify or discontinue any currently active code status orders. Care Teams Security Management Specialist Relationship Specialty Start Date End Date Brigid Frank MD [address] [place] [phone] PCP - General Internal Medicine 05/19/25
--- OUTSIDE RECORDS SUMMARY | 2025-08-20 08:41 | XMS_ITS | Encounter Summary ---
Author Organization [facility] [employer] Address [address] [place] [address] Care Team Providers Care Director Of Retail Marketing Name Role Phone Brigid Frank MD Primary Care Provider [phone] Reason for Visit * Reason Onset Date Comments Immunizations 08/18/2025 Encounter Details Date Type Department Care Team (Late st Contact Info) Description 08/18/2025 Telephone Internal Medicine - [facility] [address] [place], [place] [phone] Brigid Frank MD [address] [place] [address] Social History Tobacco Use Types Packs/Day Years [...] Notes * Dolly Lovell [place] - 08/18/2025 1:19 PM EST Patient said he dropped off form with all the specifics he needs. See other encounter. * Moses Cutler - 08/18/2025 11:51 AM EST Pt asking for TB, MMR and titers to be ordered for school documented in this encounter Plan of Treatment Upcoming Encounters Date Type Department Care Team (Late st Contact Info) Description 09/23/2025 4:00 PM EST Office Visit Internal Medicine - [address] [phone] Tamiko Cordova NP [address] [place], [place] documented as of this encounter Visit Diagnoses Not on filedocumented in this encounter Care Teams Director Of Retail Marketing Relationship Specialty Start Date End Date Brigid Frank MD [address] [place] [address] PCP - General Internal Medicine 05/19/25 documented as of this encounter
== END 2025-08-20 08:20 | disposition home or self-care (01) ==
LOC: HO.NEURO 08:19
PROVIDERS: Visit Provider Nurse Practitioner
DX: G40.409 Other generalized epilepsy and epileptic syndromes, not intractable, without status epilepticus (principal)
CPT/HCPCS: 95816

== ENCOUNTER → 2025-08-20 08:33 | Outpatient (BNV) | payer OTHER, SELFPAY | PROVIDERS: Visit Provider Psychiatry & Neurology Neurology | DX: G40.909 Epilepsy, unspecified, not intractable, without status epilepticus (principal) | CPT/HCPCS: 95816 ==

== ENCOUNTER → 2025-08-31 08:49 | Outpatient (BNV) | payer OTHER, SELFPAY | PROVIDERS: Visit Provider Radiology Diagnostic Radiology | DX: G40.909 Epilepsy, unspecified, not intractable, without status epilepticus (principal); G31.9 Degenerative disease of nervous system, unspecified | CPT/HCPCS: 70553 ==

== ENCOUNTER 2025-08-31 08:50 | Outpatient (REF) | payer OTHER, SELFPAY ==
--- NOTE | ~2025-08-31 | MR_ITS ---
EXAMINATION: MR BRAIN WITHOUT AND WITH CONTRAST CLINICAL INFORMATION: G40.909. COMPARISON: None available. TECHNIQUE: Multiplanar, multisequence MRI of the brain was obtained before and after the intravenous administration of 10.0 mL gadolinium based (Gadavist) without reported immediate complications.. FINDINGS: No restricted diffusion. No signal abnormality or enhancing mass or volume loss in the hippocampi. No abnormal enhancement within the intra-axial or the extra-axial compartment of the cranium. No acute intracranial hemorrhage, mass effect, midline shift, hydrocephalus or herniation. Villanueva-white matter differentiation is normal. Prominence of the extra-axial CSF spaces cerebral sulci and ventricles likely central volume loss. Posterior cranial fossa contents demonstrated no signal abnormality or masses. Normal position of the cerebellar tonsils. Sellar/percent region demonstrated no gross signal abnormality or enhancing mass. Flow-void signal within the main cerebral vessels is normal. MR/MR head/brain wo/w con IMPRESSION: No mesial temporal lobe sclerosis. No acute or structural brain abnormality. No abnormal enhancement. Mild global cerebral atrophy. Electronically signed by: Seven Jose MD 08/31/2025 10:01 AM DAPHNE
== END 2025-08-31 08:51 | disposition home or self-care (01) ==
LOC: HO.MRI 08:50
PROVIDERS: Visit Provider Nurse Practitioner
DX: G40.909 Epilepsy, unspecified, not intractable, without status epilepticus (principal)
CPT/HCPCS: 70553; A9585

== ENCOUNTER 2025-09-04 09:22 | Outpatient (REF) | payer OTHER, SELFPAY ==
[2025-09-04 11:01] LABS: Alanine Aminotransferase 98 U/L (0-40); Albumin Level 4.5 g/dL (3.5-5.0); Alkaline Phosphatase 208 U/L (39-117); Anion Gap 17 (12-20); Aspartate Amino Transferase 181 U/L (5-37); Blood Urea Nitrogen 23 mg/dL (9-16); Calcium 8.9 mg/dL (8.4-10.2); Carbon Dioxide 27 mmol/L (22-29); Chloride 96 mmol/L (96-108); Estimated Glomerular Filt Rate 49; Potassium 3.9 mmol/L (3.3-5.1); Sodium 136 mmol/L (135-145); Total Protein 8.3 g/dL (6.5-8.0)
== END 2025-09-04 09:23 | disposition home or self-care (01) ==
LOC: HO.LAB 09:22
PROVIDERS: Visit Provider Nurse Practitioner
DX: G40.909 Epilepsy, unspecified, not intractable, without status epilepticus (principal); Z79.899 Other long term (current) drug therapy
CPT/HCPCS: 36415; 80053; 99212

== ENCOUNTER 2025-09-04 09:22 | Outpatient (AMB) | payer OTHER, SELFPAY ==
--- NOTE | 2025-09-04 09:20 | MHC.OFFVIS ---
Vital Signs 09/04/25 09:29 Height 5 ft 11 in Weight 210 lb BMI 29.3 BP 136/80 Blood Pressure Location Rt brachial Position Sitting Respiration 16 Pulse 92 Pulse Source Pulse Oximeter Pulse Oximetry (%) 100 Oxygen Delivery Method Room Air Intake Visit Reasons: 1m results Maintenance Craftsman Required: No Allergies No Known Allergies Allergy (Verified 09/04/25 09:30) HPI Comments Details: Jeromy is a 45-year-old male patient with a past medical history of hypertension, anxiety, and alcohol use disorder (and alcohol-related seizures) presenting for a follow-up evaluation. Per documented history: He was seen in the emergency room on 07/10/2025. According to EMS, he was found on his front lawn. Neighbors has been concern for seizure activity. The patient has been fired from his job that morning. The family also had some concerns for medication overdose. Workup in the emergency room included an EKG and a CT of the head/brain and cervical spine without contrast. The CTs showed no acute abnormalities of the head or cervical spine. At the time of his a visit with me 07/22/2025, he shared with me that he had his 1st drink at age 11. He started drinking regularly at age 13 with his father. He has a long history of drinking heavily for many years though approximately 3-4 years ago when he developed ascites, he stopped drinking for approximately 2 years. He believes that he stopped drinking cold turkey however he was admitted to the hospital for his ascites and can not recall if he was given anything to prevent withdrawal symptoms. Up until recently, he had not experienced any withdrawal seizures in the past throughout his life that he can recall. He has been sober for approximately 2 years but approximately 1 year ago he began drinking slowly again. More recently, he is back to drinking heavily as he has been before. Over the course of last few months leading up to our last visit together, he has had approximately 5 seizure episodes. He noted that 2 of the seizure episodes occurred at work and the remainder of the seizure episodes occurred in a home setting. He can recall specifically the 1st seizure occurring after abstaining from alcohol for 3 days because he was having some relationship difficulties with his significant other. Subsequent seizures that have occurred at work have also been in the setting of sobriety however he can not recall specifically how long he has been without alcohol before those seizures. He also noted that the Gordy before our last visit together he had another tonic-clonic seizure event though this was in the setting of being intoxicated. He does not have any prior seizure history or any known family of seizure history that he is aware of. He denies any significant head traumas, history of brain infection, or history of premature /traumatic . Sleep quality can be poor though drinking alcohol does help him to sleep. He also admitted to some added stress at home especially with just recently losing his job. He has been on naltrexone for some time though he is no longer taking naltrexone. He does speak with a therapist. Jeromy tells me today that since the time of our last visit, he has been taking the levetiracetam 500 mg extended release at night without any side effects. He has not had any recurrent seizure events. He has been able to taper down on his alcohol intake however he is still drinking alcohol daily. He has however made some positive strides with this. His MRI completed 08/31/2025 showed no mesial temporal sclerosis, no acute or structural brain abnormality, no abnormal enhancement. There was mild global cerebral atrophy. His EEG performed 08/20/2025 was somewhat limited due to frequent artifacts however there was no obvious epileptic tendency. [facility] Medical History Depression Transaminitis Palpitations Obesity Hypertension HLD (hyperlipidemia) Fatty liver Alcohol abuse Review of Systems Const All systems reviewed & are unremarkable except as noted in HPI and below Physical Exam Vital Signs: Last Vital Signs Pulse 92 09/04/25 09:29 Resp 16 09/04/25 09:29 BP 136/80 09/04/25 09:29 Pulse Ox 100 09/04/25 09:29 Oxygen Delivery Method Room Air 09/04/25 09:29 BMI result Body Mass Index 29.3 Const General: cooperative and no acute distress Orientation/consciousness: patient oriented x3 Neuro General: patient oriented x3, gait normal, moves all extremities and CN's II-XI intact bilaterally Psych Appearance: grossly normal Mental Status: mental status grossly normal Speech and movement: Other speech and movement exam findings present (Psych) (Slow, quiet voice ) Affect: Sad affect present and Anxious affect present Attitude: cooperative Thought process: Normal thought process present Thought content: Normal thought content present Insight: Good insight present (Psych) Judgement: Good judgement present (Psych) Assessment & Plan Assessment & Plan (1) Seizure disorder: Code(s): G40.909 - Epilepsy, unspecified, not intractable, without status epilepticus Category: Medical Plan Jeromy is a 45-year-old male patient with a past medical history of hypertension, anxiety, and alcohol use disorder (and alcohol-related seizures) presenting for a follow-up evaluation. Seizure events likely related to alcohol use and there are no structural brain abnormalities that likely place him at a higher risk for seizure though some mild global atrophy was noted perhaps related to his chronic alcohol use. His EEG was limited though reassuring without any obvious epileptic tendency. I think it is reasonable to continue him on the levetiracetam 500 mg extended release for now. Should he be able to become completely alcohol free, we could consider a trial off of the levetiracetam. Until then, I think he is at too great of a risk to come off of it. Because of his prior history of liver disease/cirrhosis, I am recommending a CMP today to include liver studies with use of his levetiracetam. -continue levetiracetam extended release 500 mg nightly -CMP -follow up in 4 months or sooner if needed Orders: Orders Comprehensive Met. Panel Today G40.909 - Epilepsy, unspecified, not intractable, without status epilepticus Medications: Changed From levetiracetam ER 500 mg PO BEDTIME 30 days 30 tabs 5RF To levetiracetam ER 500 mg PO BEDTIME 90 tabs 5RF 90 days Coding Level of Care Code Est Pt Level 4 (71111) Diagnoses Seizure disorder G40.909
[2025-09-04 09:29] VITALS: BP 136/80; PULSE 92; RESP 16; O2SAT 100; BMI 29.3
--- OUTSIDE RECORDS SUMMARY | 2025-09-04 09:48 | XMS_ITS | Clinical Summary ---
Author Organization [address] Address [address] [place] [phone] Phone Care Team Providers Care Procedure Tech Name Role Phone Brigid Frank MD Primary Care Provider [phone] Allergies No known active allergies Medications multivitamin [...] He also was recently evaluated in the [facility] emergency room and he left the [...] Encounters Date Type Department Care Team Description 08/25/2025 Results Follow-Up Internal Medicine - [address] [phone] Laurel Carlos [place] 08/24/2025 10:55 AM EST Lab Draw Station [address] Screening for endocrine, nutritional, metabolic and immunity disorder; Antibody response examination; Antibody response exam; Screening for endocrine, metabolic and immunity disorder 08/24/2025 Telephone Internal Medicine [address] [phone] Brigid Frank MD 08/20/2025 [place] [facility] [address] [phone] Brigid Frank MD 08/18/2025 [place] [facility] [address] [phone] Brigid Frank MD 08/18/2025 [place] [facility] [address] [phone] Brigid Frank MD 07/23/2025 Telephone Internal Medicine [address], [place] [phone] Brigid Frank MD 07/02/2025 10:13 AM EDT - 07/04/2025 2:57 PM EDT Hospital Encounter [facility] [address] [place] [phone] Mikhail Doshi MD Mogul, Ashley, MD Flores, Carlos M, MD Surendran, Anupama, MD Nasser, Nada S, MD Alcohol-induced acute pancreatitis without infection or necrosis (Primary Dx); Transaminitis; Alcohol dependence with uncomplicated withdrawal ([facility]/HCC V24, [facility] V28) Discharge Disposition: Home or Self Care 07/02/2025 Telephone Internal Medicine - [address] [phone] Brigid Frank MD 07/02/2025 Telephone Internal Medicine - [address] [phone] Brigid Frank MD 06/24/2025 8:45 AM EDT Office Visit Internal Medicine - [address] [phone] Tamiko Cordova NP Primary hypertension (Primary Dx); Adjustment reaction with anxiety and depression; Seizure ([facility] V24, [facility] V28); Alcohol abuse; Mixed hyperlipidemia; Screening for thyroid disorder; Screening for diabetes mellitus from Last 3 Months Immunizations Immunization Administration Dates Next Due HepB-CpG (Heplisav-B) 18yo and older 08/21/2025 Influenza Quadravalent, MDCK , 0.5ml, preservative free (Flucelvax) 6mo and older 07/09/2023,10/19/2021 Influenza trivalent, MDCK, 0 .5mL, preservative free (Flucelvax) 6mo and older 08/22/2025 MMR, measles mumps and rubel la Live (Priorix; M-M-R II) 12mo and older 08/21/2025 Td Tetanus diptheria (Tdvax) 7yo and older 05/26 Tdap Tetanus diptheria acell ular pertussis (Boostrix; Adacel) 7yo and older 08/21/2025,02/18/2019 Surgical History Surgery Date Site/Laterality Comments OTHER SURGICAL HISTORY PROCEDURE: TX RDCTJ TORSION TSTIS W/WO FIXJ CLAT TESTIS [...] Years Used Date Smoking Tobacco: Former Cigarettes 0.3 Q uit: 11/15/2019 Smokeless Tobacco: Never Tobacco [...] Care Team (Late st Contact Info) Description 12/22/2025 3:45 PM EDT Office Visit Internal Medicine - [facility] [address] [place], [place] [phone] Tamiko Cordova, [employer]K [employer]IVER [address] [place] [address] Health Maintenance Due Date Last Done Comments Hepatitis A Vaccines (1 of 2 - Risk 2-dose series) 2000 Pneumococcal Vaccine: Pediatrics (0 to 5 Years) and At-Risk Patients (6 to 49 Years) (1 of 2 - PCV) 2000 HPV Vaccines (1 - 3-dose SCDM series) 2008 HIV Screening 09/13/2022 Social Influencers of Health Screening 09/13/2022 Depression Screening 10/15/2024 Hepatitis B Vaccines (2 of 2 - CpG 2-dose series) 09/18/2025 08/21/2025 Hypertension/CHF/CAD Annual BMP Blood Test 07/04/2026 07/04/2025, 07/03/2025, 07/02/2025, Additional history exists Cholesterol Screening (Lipid Panel) 02/25/2029 02/26/2024, 02/26/2024 DTaP,Tdap,and Td Vaccines (4 - Td or Tdap) 08/21/2035 08/21/2025, 02/18/2019, 05/26/2009 RSV Immunization Adult Patients (1 - 1-dose 75+ series) 2056 Hepatitis C Screening Completed 07/23/2020 MMR Vaccines Aged Out 08/21/2025 No longer eligi ble based on patient's age to complete this topic COVID-19 Vaccine Completed 08/22/2025, 05/05/2021 Influenza Vaccine Completed 08/22/2025, , 10/19/2021 HIB Vaccines Aged Out No longer eligi [...] Procedure Name Priority Date/Time Associated Diagnosis Comments INTERFERON GAMMA INTERPRETATION Routine 08/24/2025 11:11 AM EST Screening for endocrine, nutritional, metabolic and immunity disorder INTERFERON GAMMA ANTIGEN 2 Routine 08/24/2025 11:11 AM EST Screening for endocrine, nutritional, metabolic and immunity disorder INTERFERON GAMMA ANTIGEN 1 Routine 08/24/2025 11:11 AM EST Screening for endocrine, nutritional, metabolic and immunity disorder INTERFERON GAMMA MITOGEN Routine 08/24/2025 11:11 AM EST Screening for endocrine, nutritional, metabolic and immunity disorder INTERFERON GAMMA NIL Routine 08/24/2025 11:11 AM EST Screening for endocrine, nutritional, metabolic and immunity disorder HEPATITIS B SURFACE ANTIBODY Routine 08/24/2025 11:11 AM EST Screening for endocrine, nutritional, metabolic and immunity disorder Antibody response examination INTERFERON GAMMA FOR TB, QUALITATIVE Routine 08/24/2025 11:11 AM EST Screening for endocrine, nutritional, metabolic and immunity disorder MUMPS ANTIBODY IGG Routine 08/24/2025 11 :11 AM EST Antibody response exam Screening for endocrine, metabolic and immunity disorder RUBELLA ANTIBODY IGG Routine 08/24/2025 11:11 AM EST Antibody response exam Screening for endocrine, metabolic and immunity disorder RUBEOLA ANTIBODY IGG Routine 08/24/2025 11:11 AM EST Antibody response exam Screening for endocrine, metabolic and immunity disorder VARICELLA ZOSTER ANTIBODY IGG Routine 08/24/2025 11:11 AM EST Screening for endocrine, nutritional, metabolic and immunity disorder Antibody response examination IRON AND TIBC Add-On 07/04/2025 5:30 AM EDT CBC WITH AUTO DIFFERENTIAL Routine 07/04/2025 5:30 AM EDT LIPASE Routine 07/04/2025 5:30 AM EDT PHOSPHORUS Routine 07/04/2025 5:30 AM EDT MAGNESIUM Routine 07/04/2025 5:30 AM EDT HEPATIC FUNCTION PANEL Routine 5:30 AM EDT CBC AND DIFFERENTIAL Routine 07/04/2025 5:30 AM EDT BASIC METABOLIC PANEL Routine 07/04/2025 5:30 AM EDT VITAMIN B1 Routine 07/03/2025 12:23 PM EDT FOLATE Add-On 07/03/2025 5:38 AM EDT PHOSPHORUS Add-On 07/03/2025 5:38 AM EDT CBC WITH AUTO DIFFERENTIAL Routine 07/03/2025 5:38 AM EDT LACTATE Routine 07/03/2025 5:38 AM EDT HEPATIC FUNCTION PANEL Routine 5:38 AM EDT LIPASE Routine 07/03/2025 5:38 [...] AM EDT HEPATIC FUNCTION PANEL STAT Add-on 10:58 AM EDT LIPASE STAT Add-on 07/02/2025 10:58 AM EDT ETHANOL STAT Add-on 07/02/2025 10:58 AM EDT CBC WITH AUTO DIFFERENTIAL STAT 07/02/2025 10:58 AM EDT BASIC METABOLIC PANEL STAT 07/02/2025 10:58 AM EDT CBC AND DIFFERENTIAL STAT 07/02/2025 10:58 AM EDT LIPID PANEL Routine 02/26/2024 HM HEPATITIS C SCREENING Routine 07/23/2020 from Last 3 Months or Most Recently Relevant to Health Maintenance Results * Interferon gamma interpretation (08/24/2025 11:11 AM EST) [facility] Signature Quantiferon Plus Interpretation Negative Negative LAB CHEMISTRY METHOD 08/26/2025 1:29 PM EST [facility] Blood Venous blood specimen / Unknown Venipuncture / Unknown 08/24/2025 11:11 AM EST 08/24/2025 11:11 AM EST us Tamiko Rao [employer] LAB BLOOD ORDERABLES Final R esult [facility] [address] [place] [address], [place] [phone] * Interferon gamma antigen 2 (08/24/2025 11:11 AM EST) Blood Venous blood specimen / Unknown Venipuncture / Unknown 08/24/2025 11:11 AM EST 08/24/2025 11:11 AM EST us Tamiko Rao [employer] T[employer] DRIVER LAB BLOOD ORDERABLES Final R esult Performing Organization Address City/[facility]/ZIP Co de Phone Number [facility] [address] [place] [address], [place] [phone] * Interferon gamma antigen 1 (08/24/2025 11:11 AM EST) Blood Venous blood specimen / Unknown Venipuncture / Unknown 08/24/2025 11:11 AM EST 08/24/2025 11:11 AM EST us Tamiko Rao [employer] T[employer]IVER LAB BLOOD ORDERABLES Final R esult [facility] [address] [place] [address], [place] [phone] * Interferon gamma mitogen (08/24/2025 11:11 AM EST) Blood Venous blood specimen / Unknown Venipuncture / Unknown 08/24/2025 11:11 AM EST 08/24/2025 11:11 AM EST us Tamiko Rao [employer] T[employer] LAB BLOOD ORDERABLES Final R esult [facility] [address] [place] [address], [place] [phone] * Interferon gamma NIL (08/24/2025 11:11 AM EST) Blood Venous blood specimen / Unknown Venipuncture / Unknown 08/24/2025 11:11 AM EST 08/24/2025 11:11 AM EST us Tamiko Rao [employer] T[employer]IVER LAB BLOOD ORDERABLES Final R esult Performing Organization Address City/[facility] Co de Phone Number [facility] [address] [place] [address], [place] [phone] * Rubeola antibody IgG (08/24/2025 11:11 AM EST) Rubeola IgG Positive Positive LAB CHEMISTRY METHOD 08/25/2025 9:22 AM EST [facility] Rubeola IgG Antibody, measured 21.50 >=16.50 AU/mL LAB CHEMISTRY METHOD 08/25/2025 9:22 AM EST [facility] Blood Venous blood specimen / Unknown Venipuncture / Unknown 08/24/2025 11:11 AM EST 08/24/2025 11:11 AM EST Narrative [facility] - 08/25/2025 9:22 AM EST Interpretation >=16.5 AU/ml is considered to be consistent with Immunity us Tamiko Rao [employer] T[employer] LAB BLOOD ORDERABLES Final R esult Performing Organization Address City/[facility]/ZIP Co de Phone Number [facility] [address] [place] [address], [place] [phone] * Rubella antibody IgG (08/24/2025 11:11 AM EST) Rubella IgG Quant 160.8 >=10.0 I Unit/mL LAB CHEMISTRY METHOD 08/24/2025 4:24 PM EST [facility] Rubella IgG Antibody Interp Positive Positive LAB CHEMISTRY METHOD 08/24/2025 4:24 PM EST [facility] Blood Venous blood specimen / Unknown Venipuncture / Unknown 08/24/2025 11:11 AM EST 08/24/2025 11:11 AM EST us Tamiko Rao NP LAB BLOOD ORDERABLES Final R esult Performing Organization Address [facility] Co de Phone Number [facility] [address] [place] [address], * (ABNORMAL) Hepatitis B surface antibody (08/24/2025 11:11 AM EST) Hepatitis B Surface Ab Positive (A) Negative LAB CHEMISTRY METHOD 08/24/2025 4:13 PM EST [facility] Hepatitis B Surface Ab Quantitative 944.3 mIU/mL LAB CHEMISTRY METHOD 08/24/2025 4:13 PM EST [facility] Blood Venous blood specimen / Unknown Venipuncture / Unknown 08/24/2025 11:11 AM EST 08/24/2025 11:11 AM EST Narrative [facility] - 08/24/2025 4:13 PM EST >=10 mIU/mL is considered to be consistent with immunity. us Tamiko Rao [employer] T[employer] LAB BLOOD ORDERABLES Final R esult Performing Organization Address City/[facility]/ZIP Co de Phone Number [facility] [address] [place] [address], * Varicella zoster antibody IgG (08/24/2025 11:11 AM EST) Varicella IgG Positive Positive LAB CHEMISTRY METHOD 08/25/2025 9:28 AM EST [facility] Varicella Zoster IgG 8.04 >=1.00 S/CO LAB CHEMISTRY METHOD 08/25/2025 9:28 AM EST [facility] Blood Venous blood specimen / Unknown Venipuncture / Unknown 08/24/2025 11:11 AM EST 08/24/2025 11:11 AM EST [facility] - 08/25/2025 9:28 AM EST Interpretation >= 1.00 S/CO is considered to be consistent with Immunity Tamiko Rao NP LAB BLOOD ORDERABLES Final R esult Performing Organization Address City/[facility]/ZIP Co de Phone Number [facility] [address] [place] [address], * Mumps antibody IgG (08/24/2025 11:11 AM EST) Mumps IgG Positive Positive LAB CHEMISTRY METHOD 08/25/2025 9:28 AM EST [facility] Mumps IgG Antibody, measured 20.5 >=11.0 AU/mL LAB CHEMISTRY METHOD 08/25/2025 9:28 AM EST [facility] Blood Venous blood specimen / Unknown Venipuncture / Unknown 08/24/2025 11:11 AM EST 08/24/2025 11:11 AM EST [facility] - 08/25/2025 9:28 AM EST >=11 AU/mL is considered to be consistent with Immunity. Tamiko Rao NP LAB BLOOD ORDERABLES Final R esult [facility] [address] [place] [address], * (ABNORMAL) CBC auto differential (07/04/2025 5:30 AM EDT) Only the most recent of3 resultswithin the time period is included. WBC 5.3 4.8 - 10.8 K/mcL LAB HEMETOLOGY METHOD 07/04/2025 7:53 AM [facility] RBC 3.50(L) 4.50 - 5.50 M/mcL LAB HEMETOLOGY METHOD 07/04/2025 7:53 AM [facility] Hemoglobin 11.4(L) 13.5 - 17.5 g/dL LAB HEMETOLOGY METHOD 07/04/2025 7:53 AM [facility] Hematocrit 33.3(L) 42.0 - 54.0 % LAB HEMETOLOGY METHOD 07/04/2025 7:53 AM [facility] MCV 96.0 79.0 - 98.0 FL LAB HEMETOLOGY METHOD 07/04/2025 7:53 AM [facility] MCH 32.9(H) 27.0 - 32.0 pcg LAB HEMETOLOGY METHOD 07/04/2025 7:53 AM [facility] MCHC 34.2 32.0 - 37.0 g/dL LAB HEMETOLOGY METHOD 07/04/2025 7:53 AM [facility] RDW 15.5(H) 11.0 - 15.0 % LAB HEMETOLOGY METHOD 07/04/2025 7:53 AM [facility] Platelets 67(L) 130 - 400 K/mcL LAB HEMETOLOGY METHOD 07/04/2025 7:53 AM [facility] Comment:reviewed by slide MPV 10.1 7.0 - 11.0 FL LAB HEMETOLOGY METHOD 07/04/2025 7:53 AM [facility] NRBC 0.0 <1.0 % LAB HEMETOLOGY METHOD 07/04/2025 7:53 AM [facility] NRBC Absolute 0.00 <0.10 K/mcL LAB HEMETOLOGY METHOD 07/04/2025 7:53 AM [facility] Neutrophils Relative 74.4 % LAB HEMETOLOGY METHOD 07/04/2025 7:53 AM [facility] Lymphocytes Relative 17.0 % LAB HEMETOLOGY METHOD 07/04/2025 7:53 AM [facility] Monocytes Relative 5.5 % LAB HEMETOLOGY METHOD 07/04/2025 7:53 AM [facility] Eosinophils Relative 2.3 % LAB HEMETOLOGY METHOD 07/04/2025 7:53 AM [facility] Basophils Relative 0.6 % LAB HEMETOLOGY METHOD 07/04/2025 7:53 AM [facility] Immature Granulocytes Relative 0.2 % LAB HEMETOLOGY METHOD 07/04/2025 7:53 AM [facility] Neutrophils Absolute 3.94 1.50 - 7.00 K/mcL LAB HEMETOLOGY METHOD 07/04/2025 7:53 AM [facility] Lymphocytes Absolute 0.90(L) 1.00 - 5.00 K/mcL LAB HEMETOLOGY METHOD 07/04/2025 7:53 AM [facility] Monocytes Absolute 0.29 0.20 - 1.00 K/mcL LAB HEMETOLOGY METHOD 07/04/2025 7:53 AM [facility] Eosinophils Absolute 0.12 0.00 - 0.50 K/mcL LAB HEMETOLOGY METHOD 07/04/2025 7:53 AM [facility] Basophils Absolute 0.03 0.00 - 0.20 K/mcL LAB HEMETOLOGY METHOD 07/04/2025 7:53 AM [facility] Immature Granulocytes Absolute 0.01 0.00 - 0.03 K/mcL LAB HEMETOLOGY METHOD 07/04/2025 7:53 AM [facility] Blood Venous blood specimen / Unknown Venipuncture / Unknown 07/04/2025 5:30 AM EDT 07/04/2025 6:42 AM EDT Tracie Fishman MD LAB BLOOD ORDERABLES Final Result Performing Organization Address [facility]/ZIP Co de Phone Number [facility] [address] [place] [address], [place] [phone] * Iron and TIBC (07/04/2025 5:30 AM EDT) Iron 83 50 - 160 mcg/dL LAB CHEMISTRY METHOD 07/04/2025 12:20 PM EDT [facility] TIBC 320 250 - 450 mcg/dL LAB CHEMISTRY METHOD 07/04/2025 12:20 PM EDT [facility] Iron Saturation 26 20 - 50 % LAB CHEMISTRY METHOD 07/04/2025 12:20 PM EDT [facility] Blood Venous blood specimen / Unknown Venipuncture / Unknown 07/04/2025 5:30 AM EDT 07/04/2025 6:43 AM EDT Slava Mancilla MD LAB BLOOD ORDERABLES Final Resu lt Performing Organization Address [facility] de Phone Number [facility] [address] [place] [address], [place] [phone] * Phosphorus (07/04/2025 5:30 AM EDT) Only the most recent of2 resultswithin the time period is included. Phosphorus 3.1 2.5 - 4.5 mg/dL LAB CHEMISTRY METHOD 07/04/2025 7:21 AM EDT [facility] Blood Venous blood specimen / Unknown Venipuncture / Unknown 07/04/2025 5:30 AM EDT 07/04/2025 6:43 AM EDT Tracie Fishman MD LAB BLOOD ORDERABLES Final Result Performing Organization Address [facility]/ZIP Co de Phone Number [facility] [address] [place] [address], [place] [phone] * Magnesium (07/04/2025 5:30 AM EDT) Only the most recent of2 resultswithin the time period is included. Pathologist [facility] Magnesium 1.9 1.9 - 2.6 mg/dL LAB CHEMISTRY METHOD 07/04/2025 7:32 AM EDT [facility] Comment:Results verified by repeat testing Blood Venous blood specimen / Unknown Venipuncture / Unknown 07/04/2025 5:30 AM EDT 07/04/2025 6:43 AM EDT us Tracie Fishman MD LAB BLOOD ORDERABLES Final Result Performing Organization Address [facility] de Phone Number [facility] [address] [place] [address], [place] [phone] * (ABNORMAL) Lipase (07/04/2025 5:30 AM EDT) Only the most recent of3 resultswithin the time period is included. [facility] Lipase 147(H) 13 - 75 unit/L LAB CHEMISTRY METHOD 07/04/2025 7:21 AM EDT [facility] Blood Venous blood specimen / Unknown Venipuncture / Unknown 07/04/2025 5:30 AM EDT 07/04/2025 6:43 AM EDT us Tracie Fishman MD LAB BLOOD ORDERABLES Final Result Performing Organization Address [facility] Co de Phone Number [facility] [address] [place] [address], [place] [phone] * (ABNORMAL) Hepatic function panel (07/04/2025 5:30 AM EDT) Only the most recent of3 resultswithin the time period is included. Pathologist [facility] Total Protein 5.9(L) 6.0 - 8.0 g/dL LAB CHEMISTRY METHOD 07/04/2025 7:22 AM [facility] Albumin 2.9(L) 3.2 - 5.0 g/dL LAB CHEMISTRY METHOD 07/04/2025 7:22 AM [facility] Total Bilirubin 3.2(H) 0.0 - 1.4 mg/dL LAB CHEMISTRY METHOD 07/04/2025 7:22 AM [facility] Bilirubin, Direct 2.1(H) 0.0 - 0.3 mg/dL LAB CHEMISTRY METHOD 07/04/2025 7:22 AM [facility] Bilirubin, Indirect 1.1 0.0 - 1.1 mg/dL LAB CHEMISTRY METHOD 07/04/2025 7:22 AM [facility] ALT (SGPT) 69(H) 10 - 60 unit/L LAB CHEMISTRY METHOD 07/04/2025 7:22 AM [facility] AST (SGOT) 126(H) 10 - 42 unit/L LAB CHEMISTRY METHOD 07/04/2025 7:22 AM [facility] Alkaline Phosphatase 193(H) 42 - 121 unit/L LAB CHEMISTRY METHOD 07/04/2025 7:22 AM [facility] Blood Venous blood specimen / Unknown Venipuncture / Unknown 07/04/2025 5:30 AM EDT 07/04/2025 6:43 AM EDT us Tracie Fishman MD LAB BLOOD ORDERABLES Final Result [facility] [address] [place] [address], * (ABNORMAL) Basic metabolic panel (07/04/2025 5:30 AM EDT) Only the most recent of3 resultswithin the time period is included. Sodium 135 133 - 145 mmol/L LAB CHEMISTRY METHOD 07/04/2025 7:21 AM [facility] Potassium 3.3(L) 3.5 - 5.5 mmol/L LAB CHEMISTRY METHOD 07/04/2025 7:21 AM [facility] Chloride 98 96 - 110 mmol/L LAB CHEMISTRY METHOD 07/04/2025 7:21 AM [facility] CO2 27 21 - 32 mmol/L LAB CHEMISTRY METHOD 07/04/2025 7:21 AM [facility] Anion Gap 10 3 - 11 LAB CHEMISTRY METHOD 07/04/2025 7:21 AM [facility] Glucose 86 70 - 100 mg/dL LAB CHEMISTRY METHOD 07/04/2025 7:21 AM [facility] BUN 10 5 - 25 mg/dL LAB CHEMISTRY METHOD 07/04/2025 7:21 AM [facility] Creatinine 1.19 0.70 - 1.30 mg/dL LAB CHEMISTRY METHOD 07/04/2025 7:21 AM [facility] eGFR 77 >=60 mL/min/1. 73m2 LAB CHEMISTRY METHOD 07/04/2025 7:21 AM [facility] Comment:Calculation based on the Chronic Kidney Disease Epidemiology Collaboration (CKD-EPI) equation refit without adjustment for race. BUN/Creatinine Ratio 8.4 LAB CHEMISTRY METHOD 07/04/2025 7:21 AM [facility] Calcium 7.9(L) 8.5 - 10.5 mg/dL LAB CHEMISTRY METHOD 07/04/2025 7:21 AM [facility] Blood Venous blood specimen / Unknown Venipuncture / Unknown 07/04/2025 5:30 AM EDT 07/04/2025 6:43 AM EDT Tracie Fishman MD LAB BLOOD ORDERABLES Final Result [facility] [address] [place] [address], [place] [phone] * Vitamin B1 (07/03/2025 12:23 PM EDT) [facility] Vitamin B1 Whole Blood 111 38 - 122 ug/L 07/08/2025 12:20 PM EDT [facility] Comment: This test was developed and the performance characteristics determined by [facility]. It has not been cleared or approved by the FDA. The laboratory is regulated under CLIA as qualified to perform high-complexity testing. This test is used for patient testing purposes. It should not be regarded as investigational or for research. Test performed at [facility], [address] , [place] [address] Paulette Oshea MD, PhD - Dairy Nutrition Specialist Blood Venous blood specimen / Unknown Venipuncture / Unknown 07/03/2025 12:23 PM EDT 07/03/2025 12:34 PM EDT us Tracie Fishman MD LAB BLOOD ORDERABLES Final Result Performing Organization Address [facility] de Phone Number [facility] [address] [place] [address] * Lactate (07/03/2025 5:38 AM EDT) Only the most recent of2 resultswithin the time period is included. [facility] Lactate 0.8 0.4 - 2.0 mmol/L LAB CHEMISTRY METHOD 07/03/2025 8:09 AM EDT [facility] Blood Venous blood specimen / Unknown Venipuncture / Unknown 07/03/2025 5:38 AM EDT 07/03/2025 6:28 AM EDT us Dolly CUEVAS LAB BLOOD ORDERABLES Final R esult Performing Organization Address [facility]/ZIP Co de Phone Number [facility] [address] [place] [address], [place] [phone] * Folate (07/03/2025 5:38 AM EDT) Folate 13.5 2.8 - 17.0 ng/ml LAB CHEMISTRY METHOD 07/03/2025 1:04 PM EDT [facility] Blood Venous blood specimen / Unknown Venipuncture / Unknown 07/03/2025 5:38 AM EDT 07/03/2025 6:36 AM EDT Tracie Fishman MD LAB BLOOD ORDERABLES Final Result Performing Organization Address City/[facility]/ZIP Co de Phone Number [facility] [address] [place] [address], * ECG 12 lead (07/02/2025 5:30 PM EDT) Ventricular Rate ECG 104 BPM GEMUSE Atrial Rate 104 BPM GEMUSE P-R Interval 122 ms GEMUSE QRS Duration 84 ms GEMUSE Q-T Interval 358 ms GEMUSE QTc 470 ms GEMUSE P Wave Pinch 41 degrees GEMUSE R Pinch 60 degrees GEMUSE T Pinch 47 degrees GEMUSE ECG Interpretation Sinus tachycardia with occasional Premature ventricular complexes Otherwise normal ECG When compared with ECG of 13-JAN-2017 18:41, Premature ventricular complexes are now Present T wave inversion no longer evident in Inferior leads T wave inversion no longer evident in Anterolateral leads Confirmed by MD Horace, [facility] ([id number]) on 07/03/2025 9:46:58 PM GEMUSE 07/02/2025 5:30 PM EDT 07/03/2025 9:46 PM EDT Shanita Swain MD ECG ORDERABLES Final Result Performing Organization Address City/[facility]/ZIP Co de Phone Number GEMUSE * [...] Signed Date: 07/02/2025 16:48 ET Workstation ID: [id number] Transcribed By: Self Edit Transcribed Date: 07/02/2025 [...] Signed Date: 07/02/2025 16:48 ET Workstation ID: [id number] Transcribed By: Self Edit Transcribed Date: 07/02/2025 16:44 ET Shanita Swain MD [facility] [place] PROCEDURES Final Result * CT Head [...] Signed Date: 07/02/2025 16:44 ET Workstation ID: [id number] Transcribed By: Self Edit Transcribed Date: 07/02/2025 [...] Signed Date: 07/02/2025 16:44 ET Workstation ID: [id number] Transcribed By: Self Edit Transcribed Date: 07/02/2025 16:43 ET Shanita Swain MD IMG CT PROCEDURES Final Result * (ABNORMAL) Lactate, with reflex (07/02/2025 3:54 PM EDT) Only the most recent of2 resultswithin the time period is included. LACTIC ACID 2.4(H) 0.4 - 2.0 mmol/L LAB CHEMISTRY METHOD 07/02/2025 4:36 PM EDT [facility] Blood Venous blood specimen / Unknown Venipuncture / Unknown 07/02/2025 3:54 PM EDT 07/02/2025 4:04 PM EDT Mikhail Doshi MD LAB BLOOD ORDERABLES Final Resul t [facility] [address] [place] [address], [place] [phone] * Prothrombin time with INR (07/02/2025 3:54 PM EDT) Protime 13.8 10.6 - 13.9 sec LAB COAGULATION METHOD 07/02/2025 4:18 PM EDT [facility] INR 1.1 LAB COAGULATION METHOD 07/02/2025 4:18 PM EDT [facility] Blood Venous blood specimen / Unknown Venipuncture / Unknown 07/02/2025 3:54 PM EDT 07/02/2025 4:04 PM EDT us Shanita Swain MD LAB BLOOD ORDERABLES Final Resul t [facility] [address] [place] [address], [place] [phone] * US Abdomen Limited (07/02/2025 3:24 PM [...] Signed Date: 07/02/2025 16:20 ET Workstation ID: [id number] Transcribed By: Self Edit Transcribed Date: 07/02/2025 16:00 ET Narrative 07/02/2025 4:20 PM EDT Exam: US ABDOMEN LIMITED Date of Study: 07/02/2025 2:40 PM CLINICAL INFORMATION: Pancreatitis, possible CBD stone TECHNIQUE: Real-time ultrasound scanning of the region of interest performed by the microsoft dynamics ax consultant. Lawn Sprinkler Servicer static images and video clips are submitted [...] of the region of interestperformed by the microsoft dynamics ax consultant. Lawn Sprinkler Servicer static images and video clipsare submitted for [...] Signed Date: 07/02/2025 16:20 ET Workstation ID: [id number] Transcribed By: Self Edit Transcribed Date: 07/02/2025 16:00 ET Shanita Swain MD [facility] PROCEDURES Final Result * Drug abuse screen 8a panel, urine (07/02/2025 1:11 PM EDT) Amphetamine Screen, Ur Negative Negative LAB CHEMISTRY METHOD 07/02/2025 1:42 PM EDT [facility] Comment:Certain OTC medicati ons containing ephedrine, phenylephrine, pseudoephedrine and phenylpropanolamine can cause false positive results. Barbiturate Screen, Ur Negative Negative LAB CHEMISTRY METHOD 07/02/2025 1:42 PM EDT [facility] Benzodiazepine Screen, Ur Negative Negative LAB CHEMISTRY METHOD 07/02/2025 1:42 PM EDT [facility] Cocaine Screen, Ur Negative Negative LAB CHEMISTRY METHOD 07/02/2025 1:42 PM EDT [facility] Opiate Screen, Ur Negative Negative LAB CHEMISTRY METHOD 07/02/2025 1:42 PM EDT [facility] Cannabinoid (THC) Screen, Ur Negative Negative LAB CHEMISTRY METHOD 07/02/2025 1:42 PM EDT [facility] Comment:Specimens from patie nts taking pantoprazole sodium (Protonix) have been shown to produce false positive results. Oxycodone Screen, Ur Negative Negative LAB CHEMISTRY METHOD 07/02/2025 1:42 PM EDT [facility] Fentanyl, Ur Negative Negative LAB CHEMISTRY METHOD 07/02/2025 1:42 PM EDT [facility] Urine Urine specimen obtained by clean catch procedure / Unknown Non-blood Collection / Unknown 07/02/2025 1:11 PM EDT 07/02/2025 1:15 PM EDT Narrative [facility] - 07/02/2025 1:42 PM EDT Assay [...] MD LAB URINE ORDERABLES Final Resul t [facility]) [facility] [address] [place] [address], * (ABNORMAL) Triglycerides (07/02/2025 10:58 AM EDT) Triglycerides 316(H) 0 - 150 mg/dL LAB CHEMISTRY METHOD 07/02/2025 10:18 PM EDT [facility] Blood Venous blood specimen / Unknown Venipuncture / Unknown 07/02/2025 10:58 AM EDT 07/02/2025 11:20 AM EDT Dolly CUEVAS LAB BLOOD ORDERABLES Final R esult [facility] [address] [place] [address], [place] [phone] * (ABNORMAL) Ethanol (07/02/2025 10:58 AM EDT) Pathologist [facility] Ethanol Level 194(H) 0 - 10 mg/dL LAB CHEMISTRY METHOD 07/02/2025 1:42 PM EDT [facility] Blood Venous blood specimen / Unknown Venipuncture / Unknown 07/02/2025 10:58 AM EDT 07/02/2025 11:20 AM EDT Mikhail Doshi MD LAB BLOOD ORDERABLES Final Resul t Performing Organization Address City/[facility]/ZIP Co de Phone Number [facility] [address] [place] [address], [place] [phone] * (ABNORMAL) Lipid panel (02/26/2024) LDL/HDL Ratio 4 0 - 4 Triglycerides 172(A) 0 - 150 mg/dL Cholesterol 202(A) 0 - 200 mg/dL HDL 57 >=40 mg/dL LDL Cholesterol 111(A) 0 - 100 mg/dL Blood Venous blood specimen / Unknown Selwyn Shelton MD LAB BLOOD ORDERABLES Olga l Result * Hepatitis C Screening (07/23/2020) Pathologist [facility] Hepatitis C Screening Abstracted Selwyn Shelton MD HEALTH MAINTENANCE Final Result from Last 3 Months or Most Recently Relevant to Health Maintenance Insurance [facility] Advance Directives * Full Code - [...] currently active code status orders. Care Teams Procedure Tech Relationship Specialty Start Date End Date Brigid Frank MD [address] [place] [address] PCP - General Internal Medicine 05/19/25
--- OUTSIDE RECORDS SUMMARY | 2025-09-04 09:48 | XMS_ITS | Clinical Summary ---
Author Organization [facility] Address [address] [facility] [address] [place] [address] Phone Care Team Providers Care Solid Waste Manager Name Role Phone Alba Marie MD Primary Care Provider [phone] Allergies No known active allergies Medications No [...] He also was recently evaluated in the [facility] emergency room and he left the [...] 3, 07/09/2023, 10/19/2021, Additional history exists Insurance [facility] Medicaid [facility] Medicaid Care Teams Solid Waste Manager Relationship Specialty Start Date End Date Alba Marie MD PCP - General Internal Medicine 11/29/23
--- OUTSIDE RECORDS SUMMARY | 2025-09-04 09:48 | XMS_ITS | Encounter Summary ---
Author Organization [facility] Address [address] [place] [address] Care Team Providers Care Crime Scene Examiner Name Role Phone Brigid Frank MD Primary Care Provider [phone] Encounter Details Date Type Department Care Team (Late Contact Info) Description 08/25/2025 Results Follow-Up Internal Medicine - [address] [phone] Laurel Carlos MA Social History Tobacco Use Types Packs/Day Years Used Date Smoking Tobacco: Former Cigarettes 0.3 Q uit: 11/15/2019 Smokeless Tobacco: Never Alcohol [...] on file documented as of this encounter Plan of Treatment Upcoming Encounters Date Type Department Care Team (Late st Contact Info) Description 12/22/2025 3:45 PM EDT Office Visit Internal Medicine - [address] [phone] Tamiko Cordoav, PIERCE [address] [place] [phone] documented as of this encounter Visit Diagnoses Not on filedocumented in this encounter Care Teams Crime Scene Examiner Relationship Specialty Start Date End Date Brigid Frank MD [address] [place] [phone] PCP - General Internal Medicine 05/19/25 documented as of this encounter
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
== END 2025-09-04 09:38 | disposition home or self-care (01) ==
LOC: HO.HSM 09:23
PROVIDERS: Visit Provider Nurse Practitioner
DX: G40.909 Epilepsy, unspecified, not intractable, without status epilepticus (principal)
CPT/HCPCS: 99214